=== PATIENT | female | born 1945 | race Caucasian/White ===

== ENCOUNTER 2016-09-12 11:34 | Day surgery (SDC) | payer MEDICARE, OTHER ==
[~2016-09-12] VITALS: Ht 172.7 cm; Wt 92.5 kg
[~2016-09-12 11:34] MED LIST: 0.9% Sodium Chloride 1,000 ML IV SCH; AMLO5TAB2 PO; ASPI-973 PO; HYDR25TA4 PO; LISI40TA PO; METF500T4 PO; PARO12.52 PO; PRAV20TA2 PO; Sodium Chloride LOK Flush 10 mL Syringe IV PRN; fentaNYL-PF 50 mCg/mL 2 mL Inj IVPUSH PRN
[2016-09-12 11:54] VITALS: BP 143/78; PULSE 55; RESP 16; O2SAT 97
[2016-09-12 13:50] VITALS: BP 105/53; PULSE 56; RESP 16; O2SAT 96
[2016-09-12 14:00] VITALS: BP 99/52; PULSE 52; RESP 14; O2SAT 95
[2016-09-12 14:08] VITALS: BP 108/63; PULSE 63; RESP 14; O2SAT 97
--- NOTE | 2016-09-12 14:34 | ENDO ---
[address] [address] ENDOSCOPY PROCEDURE PATIENT: OLGA AGUIRRE : 1945 MR#: [id number] ADMIT: 09/12/2016 JOB ID: [id number] PRIMARY PROVIDER: DIANN Hamilton PROCEDURE: Esophagogastroduodenoscopy with biopsy and balloon dilatation, along with colonoscopy with cold forceps polypectomy. INDICATIONS: A 70-year-old female with some intermittent symptoms of dysphagia. She has experienced prior dilatation. She additionally has a personal history of colon polyps and presents today for both EGD and colonoscopy. EQUIPMENT: GIF Q 180 and a PCF H 180 AL. SEDATION: Versed 7 mg, 150 mcg fentanyl. COMPLICATIONS: None identified. BOWEL PREPARATION: Fair, adequate exam. PROCEDURE INFORMATION: After the risks and benefits were explained, written and verbal informed consent was obtained. The patient was brought into the endoscopy suite and placed into the left lateral decubitus position. Sedation was achieved using the above-stated medications with the addition of oxygen via nasal cannula. The scope was introduced into the mouth through the bite block and advanced under direct visualization to the level of the second portion of the duodenum. The scope was slowly withdrawn to carefully examine the mucosa for any defects or lesions. Retroflexed views were accomplished in the stomach, the stomach was decompressed, and the scope removed from the patient, who tolerated the procedure well. The patient was then turned around and digital rectal examination accomplished. Mild internal hemorrhoids noted. The scope was introduced into the rectum and advanced to the cecum as identified by the appendiceal orifice and ileocecal valve. The scope was slowly withdrawn to carefully examine the mucosa for any defects or lesions. Retroflexed views were avoided in the rectum. Multiple direct views were made through the dentate line for exclusion of pathology. The colon was decompressed and the scope removed from the patient, who tolerated the procedure well. FINDINGS: 1. Duodenum: This appeared visually unremarkable from the bulb through to the second portion. 2. Stomach: No ulcers, no outlet obstruction, no mass lesions. Moderate gastropathy was seen throughout and random biopsy was therefore taken for exclusion of Helicobacter or other pathology. Retroflexed views of the LES were unremarkable. 3. Esophagus: The squamocolumnar junction generally correlated with the top of the gastric folds. The GEJ was judged to be at about 42 cm from the incisors. There was an obvious Schatzki's ring right at the level of the GEJ. I did not appreciate any evidence of acute erosive esophagitis. We elected to pursue empiric dilatation of the ring using a CRE 15-18 mm balloon. We dilated on each of the three settings, holding the balloon open for 1 minute intervals. There was a small amount of self-limited oozing consistent with dilatation effect through the ring. This was self limited and did not require intervention. The remainder of the esophagus appeared unremarkable. 4. Colon: In the transverse colon there was a diminutive, perhaps 4 mm, polyp removed with cold forceps. No other significant pathology was appreciated throughout. ENDOSCOPIC DIAGNOSES: 1. Subtle sliding hiatal hernia. 2. Schatzki's ring status post balloon dilatation to 18 mm. 3. Gastropathy. 4. Colon polyp. 5. Hemorrhoids. RECOMMENDATIONS: 1. Await histopathology. 2. Repeat colonoscopy in five years. 3. The patient would likely benefit from some form of anti-reflux therapy as maintenance in the context of a subtle sliding hiatal hernia and recurrence of Schatzki's ring. 4. Follow up on clinical response in the next 4-6 weeks in my office.
--- NOTE | 2016-09-14 16:29 | PATH ---
SURGICAL PATHOLOGY Attending Physician:Parker Mayorga CASE STATUS: Signed Out PATIENT NAME: OLGA AGUIRRE PID: [id number] : 1945 DATE COLLECTED:09/12/2016 00:00 SPECIMEN: 1: Gastric, Biopsy 2: Colon, Polyp CLINICAL HISTORY: 1). GASTRIC BIOPSY (RULE OUT H.PYLORI) 2). TRANSVERSE COLON POLYP X1 FINAL DIAGNOSIS: 1.GASTRIC BIOPSY: PORTION OF GASTRIC BODY-TYPE MUCOSA WITH MILD CHRONIC GASTRITIS. No H. pylori identified by H&E stain. Immunohistochemistry studies pending; results will be reported as an addendum. Negative for intestinal metaplasia, dysplasia, and malignancy. 2.TRANSVERSE COLON, POLYP, BIOPSY: TUBULAR ADENOMA, NEGATIVE FOR HIGH-GRADE DYSPLASIA. ICD10 K63.5 GROSS DESCRIPTION: Received are two formalin-filled containers, both labeled with the patient' s name: 1. Received in formalin, labeled with the patient' s name and "gastric", is one fragment of zapata, soft tissue measuring 0.2 x 0.2 x 0.1 cm. The fragment is totally submitted in cassette 1A. 2. Received in formalin, labeled with the patient' s name and "trans polyp", is one fragment of zapata, soft tissue measuring 0.3 x 0.2 x 0.2 cm. The fragment is totally submitted in cassette 2A. ([id number]) MICRO DESCRIPTION: See diagnosis. ICD-9 CODES: CPT CODES: 1: 64240, 56990 2: 63123 PROCEDURE/ADDENDA: Immunohistochemistry SPI Interpretation {Not Entered} Results-Comments This is an addendum to report the results of immunohistochemistry. 1. An immunohistochemical stain was performed to evaluate for Helicobacter organisms and is NEGATIVE. A control stain showed appropriate reactivity. This test was developed and its performance characteristics determined by [facility]. It has not been cleared or approved by the [place]. Food and Drug Administration. The FDA has determined that such clearance or approval is not necessary. This test is used for clinical purposes. It should not be regarded as investigational or for research. Electronically Signed Out Mehreen Orozco MD Electronically Signed Out Diandra Edwards MD [facility] [address] [place] [address] Division, [place] [address] Technical component performed at [facility], [address], [place], [address]
== END 2016-09-12 23:59 | disposition home or self-care (01) ==
LOC: END 11:34
PROVIDERS: ATTEND Internal Medicine Gastroenterology
DX: Z12.11 Encounter for screening for malignant neoplasm of colon (principal); D12.3 Benign neoplasm of transverse colon; K64.8 Other hemorrhoids; K29.50 Unspecified chronic gastritis without bleeding; K44.9 Diaphragmatic hernia without obstruction or gangrene; K22.2 Esophageal obstruction; K31.9 Disease of stomach and duodenum, unspecified; R13.10 Dysphagia, unspecified; I10 Essential (primary) hypertension; E11.9 Type 2 diabetes mellitus without complications; Z86.010 Personal history of colon polyps; Z79.82 Long term (current) use of aspirin; Z79.899 Other long term (current) drug therapy; Z79.84 Long term (current) use of oral hypoglycemic drugs
CPT/HCPCS: 43239; 43249; 45380; 99153; G0500; J2250; J3010; J7030